=== PATIENT | male | born 1980 | race Caucasian/White ===

== ENCOUNTER 2019-08-20 16:55 | Emergency (ER) | payer OTHER ==
[~2019-08-20] VITALS: Ht 162.6 cm; Wt 59.0 kg
== END 2019-08-20 22:14 | disposition home or self-care (01) ==
LOC: ER 16:55
DX: K29.00 Acute gastritis without bleeding (principal)

== ENCOUNTER 2022-03-07 13:23 | Outpatient (CLI) | payer OTHER | END 2022-03-07 13:28 | disposition home or self-care (01) | LOC: PPH VACUNA 13:23 | PROVIDERS: ATTEND Emergency Medicine Pediatric Emergency Medicine | DX: Z23 Encounter for immunization (principal) ==